=== PATIENT | female | born 1965 | race African-American/Black ===

== ENCOUNTER → 2017-03-15 | Outpatient (CLI) | payer BC ==
--- NOTE | 2017-03-16 09:25 | WOMENS IMAGING REPORT ---
EXAM DESCRIPTION: BILAT SCREENING MAMMO W/CAD COMPLETED DATE/TIME: 03/16/2017 8:15 am REASON FOR STUDY: Z12.31, ROTUINE SCREENING MAMMO Z12.31 ENCNTR SCREEN MAMMOGRAM FOR MALIGNANT NEOP LASM OF JEANNIE COMPARISON: No previous, baseline TECHNIQUE: Standard craniocaudal and mediolateral oblique views of each breast recorded using digita l acquisition. LIMITATIONS: None. FINDINGS: RIGHT BREAST MASSES: In the right breast upper outer quadrant 5 cm from the nipple, a 12 mm well-circumscribed lorena mographic nodule is present which requires further evaluation with ultrasound CALCIFICATIONS: No suspicious calcifications. Few scattered benign-appearing right breast calcificat ions. ARCHITECTURAL DISTORTION: None. DEVELOPING DENSITY: None. ASYMMETRY: None noted. OTHER: No other significant findings. LEFT BREAST MASSES: No suspicious masses. CALCIFICATIONS: No suspicious calcifications. Few scattered benign-appearing left breast calcificati ons ARCHITECTURAL DISTORTION: None. DEVELOPING DENSITY: None. ASYMMETRY: None noted. OTHER: No other significant findings. Read with the assistance of CAD. .[facility] [place] - R2 Cenova Version 1.3 .[facility] - R2 Cenova Version 1.3 .[facility] - R2 Cenova Version 2.4 .[facility] - R2 Cenova Version 2.4 .[facility] - R2 [employer] Version 9.2 IMPRESSION: 12 mm mammographic nodule in the right breast upper outer quadrant for which diagnostic right breast ultrasound is recommended No mammographic evidence for malignancy left breast. BREAST DENSITY: b. There are scattered areas of fibroglandular density. BIRAD: 0 Incomplete: Needs Additional Imaging Evaluation and/or prior Mammograms for Comparison. RECOMMENDATION: RECOMMENDED FOLLOW-UP: Right breast diagnostic ultrasound The patient will be contacted for additional imaging. COMMENT: The patient has been notified of the results by letter per [place] requirements. Additional no tification policies are in place for contacting patient with suspicious or incomplete findings. Quality ID #[id number]: The [employer] recommends an annual screening mammogram for women aged 40 years or over. This facility utilizes a reminder system to ensure that all patients receive reminder letters, and/or direct phone calls for appointments. This includes reminders for routine scr eening mammograms, diagnostic mammograms, or other Breast Imaging Interventions when appropriate. Th is patient will be placed in the appropriate reminder system. The [employer] (ACR) has developed recommendations for screening MRI of the breast s in certain patient populations, to be used in conjunction with mammography. Breast MRI surveillanc e may be appropriate for women with more than 20% lifetime risk of developing breast cancer as deter mined by genetic testing, significant family history of the disease, or history of mantle radiation f or Hodgkins Disease. ACR Practice Guidelines 2008. TECHNICAL DOCUMENTATION: FINDING NUMBER: (1) ASSESSMENT: (1) JOB ID: [id number] [employer]- All Rights Reserved
== END ==
LOC: WI 13:17
PROVIDERS: ATTEND Internal Medicine Gastroenterology
DX: Z12.31 Encounter for screening mammogram for malignant neoplasm of breast (principal); N63 Unspecified lump in breast
CPT/HCPCS: 77067; G0202

== ENCOUNTER → 2017-04-06 | Outpatient (CLI) | payer BC ==
--- NOTE | 2017-04-06 17:28 | WOMENS IMAGING REPORT ---
EXAM DESCRIPTION: U/S BREAST UNILAT LIMITED COMPLETED DATE/TIME: 04/06/2017 1:55 pm REASON FOR STUDY: N63, BREAST LUMP N63 UNSPECIFIED LUMP IN BREAST COMPARISON: Mammograms dated 03/15/2017 TECHNIQUE: Real-time and static grayscale imaging performed of the right breast targeted to the area of clinical/mammographic concern. Selected color Doppler images recorded. LIMITATIONS: None. FINDINGS: MASS: At the approximate 10 o'clock position in the right breast a small cyst is identifie d measuring 3 x 4 mm in diameters. At the approximate 11 o'clock position in the right breast a well demarcated hypoechoic ovoid mass is identified measuring 1.6 x 0.8 x 1.1 cm in diameters most consis tent with a fibroadenoma or other benign etiology. No other discrete solid or cystic masses are iden tified. OTHER: No other significant finding. IMPRESSION: Probable benign findings BIRAD: 3 Probably benign finding. Initial short-interval follow-up suggested. RECOMMENDATION: RECOMMENDED FOLLOW-UP: Recommend followup right breast ultrasound in 6 months to con firm the stability of these findings. COMMENT: The [employer] (A[employer]) has developed recommendations for screening MRI of the breasts in certain patient populations, to be used in conjunction with mammography. Breast MRI s urveillance may be appropriate for women with more than 20% lifetime risk of developing breast cancer as determined by genetic testing, significant family history of the disease, or history of mantle r adiation for Hodgkins Disease. ACR Practice Guidelines 2008. TECHNICAL DOCUMENTATION: JOB ID: [id number] [employer]- All Rights Reserved
== END ==
LOC: WI 15:28
PROVIDERS: ATTEND Internal Medicine Gastroenterology
DX: N63 Unspecified lump in breast (principal)
CPT/HCPCS: 76642

== ENCOUNTER 2018-05-26 21:41 | Emergency (ER) | payer BC ==
[2018-05-27] MEDS ORDERED: HYDROCODONE/ACETAMINOPHEN 5-325 MG (6 TAB/ER DISP) PO PRN (00:13)
--- NOTE | 2018-05-27 00:16 | ER Document Report ---
HPI - HPI Pain Level: 5 Context: Is a 52-year-old female that comes to the emergency department for chief complaint of right shoulder pain. She states that she slept on it wrong, she also strained it at work and when she was doing cramping, she states that it started out as mild pain and now has become sharp and she has difficulty with range of motion of the right arm and shoulder. She denies numbness, impact injury, fever, or any other areas of pain. She denies chest pain, difficulty breathing, fever, vomiting. Past medical history of type 2 diabetes. - REPRODUCTIVE Reproductive: DENIES: : Past Medical History - General Information source: Patient - Social History Smoking Status: Never Smoker Frequency of alcohol use: None Drug Abuse: None Lives with: Family Family History: Reviewed & Not Pertinent Pulmonary Medical History: Reports: Hx Tuberculosis Surgical Hx: Negative - Immunizations Hx Diphtheria, Pertussis, Tetanus Vaccination: Yes Vertical Provider Document - INFECTION CONTROL TRAVEL OUTSIDE OF THE [place] IN LAST 30 DAYS: No - HEENT HEENT: Atraumatic, Normocephalic - NECK Neck: Normal Inspection - RESPIRATORY Respiratory: Breath Sounds Normal, No Respiratory Distress - CARDIOVASCULAR Cardiovascular: Regular Rate, Regular Rhythm - GI/ABDOMEN Gastrointestinal: Abdomen Soft, Abdomen Non-Tender - BACK Back: Normal Inspection - Non-tender back generally on palpation. No midline tenderness, no saddle anesthesia, no signs of trauma. Normal upper and lower extremity range of motion, normal strength, normal distal neurovascular exam. - MUSCULOSKELETAL/EXTREMETIES Musculoskeletal/Extremeties: Tender - Positive speeds test, pain and difficulty with raising the right arm in abduction even up to 90, pain with palpation of the posterior aspect of the right shoulder. No erythema, abnormal heat, normal distal strength and neurovascular exam, unremarkable extremity exam otherwise. - NEURO Level of Consciousness: Awake, Alert, Appropriate - DERM Integumentary: Warm, Dry, No Rash Course - Re-evaluation Re-evalutation: Patient with positive speeds test and exam consistent with biceps tendinitis, also has tenderness over the posterior aspect of the right rotator cuff. No injury, no erythema or warmth, no fever, no neurological deficit, patient is very active with lifting with her job and with her recreational activities. Consistent with strain. I did offer an x-ray although this was declined, discussed orthopedic follow-up, treatment, return precautions. Patient states satisfaction and agreement. Discharge - Discharge Clinical Impression: Right shoulder pain Qualifiers: Chronicity: acute Qualified Code(s): M25.511 - Pain in right shoulder Condition: Stable Disposition: HOME, SELF-CARE Additional Instructions: Your examination is consistent with biceps tendon strain and rotator cuff injury. This will need time to recover, for the first 24 hours ice, afterwards apply heat, wear the sling for comfort but remember to take the arm out regularly throughout the day and perform range of motion, do gentle range of motion and slowly progress. Take medications as prescribed. Follow-up with orthopedic referral if shoulder continues to have pain and not improved. Return if you worsen including swelling, numbness, fever, etc. Prescriptions: Diazepam [Valium 5 mg Tablet] 1 - 2 tab PO TID PRN #12 tablet PRN Reason: Naproxen [Naprosyn 375 Mg Tablet] 375 mg PO BID PRN #20 tablet PRN Reason: Forms: Return to Work Referrals: DAVY MALHOTRA MD [ACTIVE STAFF] - Follow up in 1 week
--- NOTE | 2018-05-27 10:01 | EKG REPORT ---
SEVERITY:- ABNORMAL ECG - SINUS RHYTHM CONSIDER LEFT VENTRICULAR HYPERTROPHY : Confirmed by: Nish Cerna MD 27-May-2018 10:00:04
== END 2018-05-27 00:35 | disposition home or self-care (01) ==
LOC: ER 21:41
DX: M25.511 Pain in right shoulder (principal)
CPT/HCPCS: 93005; 93010; 99283